=== PATIENT | male | born 1995 | race Two or more races ===

== ENCOUNTER 2025-07-02 10:00 | Emergency (ER) | payer MEDICAID, OTHER ==
[~2025-07-02] VITALS: Ht 167.6 cm; Wt 78.0 kg
--- NOTE | 2025-07-02 11:10 | ED.PDOC ---
History of Present Illness HPI Comments 29 y/o M presents with c/c of nonradiating, right sided chest pain. Patient endorses on awakening, this morning, to 8/10, sharp pain in his lower, right pectoral region. Pain is exacerbated with deep breathes. Patient reports associated nausea and vomiting, diarrhea, fever, and chills, which began last night. Denial of any shortness of breath, bloody or bilious vomitus, abdominal pain, or further acute symptoms. Positive sick contact exposure at home with family. Medical history of asthma. Family history. Social history of occasional alcohol us. Chief Complaint: Chest Pain Time Seen by MD: 10:10 Reviewed Notes: Nurses Notes, Medications, Allergies Allergies: Coded Allergies: NO KNOWN ALLERGIES (Unverified , 07/02/25) Home Meds Active Scripts Tramadol Hcl (Tramadol Hcl) 50 Mg Tab, 50 MG PO Q8HP PRN for 7 Days, #21 TAB Prov:GAVIN VASQUEZ MD 07/02/25 Information Source: Patient Mode of Arrival: Wheelchair Severity: Moderate Timing: Hours Duration: Since onset Prehospital treatment: None Past Medical History PAST MEDICAL HISTORY: Asthma Surgical History: Denies all surgeries Family History Family History: No family hx of Cancer, No family hx of Heart genaro, No family hx of HTN, No family hx ofKidney genaro, No family hx of Liver genaro, No family hx of Lung genaro, No family hx of Stroke, Family hx of DM Social History Smoker: Non-Smoker Alcohol: Occasionally Drugs: Denies Drug Use Lives In: Home Constitutional: reports: chills, fever; denies: diaphoresis, fatigue, malaise, sweats, weakness, others EENTM: denies: blurred vision, double vision, ear bleeding, ear discharge, ear drainage, ear pain, ear ringing, eye pain, eye redness, hearing loss, mouth pain, mouth swelling, nasal discharge, nose bleeding, nose congestion, nose pain, photophobia, tearing, throat pain, throat swelling, voice changes, others Respiratory: denies: cough, hemoptysis, orthopnea, SOB at rest, shortness of breath, SOB with excertion, stridor, wheezing, others Cardiovascular: reports: chest pain; denies: dizzy spells, diaphoresis, Dyspnea on exertion, edema, irregular heart beat, left arm pain, lightheadedness, palpitations, PND, syncope, others Gastrointestinal: reports: diarrhea, nausea, vomiting; denies: abdomen distended, abdominal pain, blood streaked bowels, constipated, dysphagia, difficulty swallowing, hematemesis, melena, poor appetite, poor fluid intake, rectal bleeding, rectal pain, others Genitourinary: denies: burning, dysuria, flank pain, frequency, hematuria, incontinence, penile discharge, penile sore, pain, testicle pain, testicle s welling, urgency, others Neurological: denies: dizziness, fainting, headache, left sided numbness, left sided weakness, numbness, paresthesia, pre-existing deficit, right sided numbness, right sided weakness, seizure, speech problems, tingling, tremors, weakness, others Musculoskeletal: denies: back pain, gout, joint pain, joint swelling, muscle pain, muscle stiffness, neck pain, others Integumetry: denies: bruises, change in color, change in hair/nails, dryness, laceration, lesions, lumps, rash, wounds, others Allergic/Immunocompromised: denies: Difficulty Healing, Frequent Infections, Hives, Itching, others Hematologic/Lymphatic: denies: anemia, blood clots, easy bleeding, easy bruising, swollen glands, others Endocrine: denies: excessive hunger, excessive sweating, excessive thirst, excessive urination, flushing, intolerance to cold, intolerance to heat, unexplained weight gain, unexplained weight loss, others Psychiatric: denies: anxiety, bipolar disorder, depression, hopeless, panic disorder, schizophrenia, sleepless, suicidal, others All Other Systems: Reviewed and Negative Physical Exam General Appearance: No Apparent Distress HEENT: Normal ENT Inspection, Pharynx Normal, TMs Normal Neck: Full Range of Motion, Non-Tender, Normal, Normal Inspection Respiratory: Chest Non-Tender, Lungs Clear, No Accessory Muscle Use, No Respiratory Distress, Normal Breath Sounds Cardiovascular: No Edema, No JVD, No Murmur, No Gallop, Normal Peripheral Pulses, Regular Rate/Rhythm Breast Exam: Deferred Gastrointestinal: No Organomegaly, Non Tender, No Pulsatile Mass, Normal Bowel Sounds, Soft Genitalia: Deferred Pelvic: Deferred Rectal: Deferred Extremities: No calf tenderness, Normal capillary refill, Normal inspection, Normal range of motion, Non-tender, No pedal edema Musculoskeletal : Apperance: Normal Neurologic: Alert, shredding machine tender II-XII nml as Tested, No Motor Deficits, Normal Affect, Normal Mood, No Sensory Deficits Cerebellar Function: Normal Reflexes: Normal Skin: Dry, Normal Color, Warm Lymphatic: No Adenopathy Was a procedure done? Was a procedure done?: No Differential Dx Considerations may include: AMI, PE, ACS, URI, PNA, angina, anxiety, gastritis, GERD, PUD, musculoskeletal pain, sprain, strain, rib fractures, among others X-Ray, Labs, Meds, VS Vital Signs Date Time Temp Pulse Resp B/P (MAP) Pulse Ox O2 Delivery O2 Flow Rate FiO2 07/02/25 11:16 76 07/02/25 11:16 98.6 76 16 101/86 (91) 98 98.6 07/02/25 11:07 78 07/02/25 10:09 101/66 07/02/25 10:08 98.6 72 12 101/66 (78) 100 98.6 07/02/25 10:03 87 Lab Test 07/02/25 11:51 07/02/25 10:54 Range/Units Troponin I High Sensitivity < 3 L < 3 L </=54 ng/L White Blood Count 8.8 4.4-10.8 10^3/uL Red Blood Count 5.43 4.5-5.90 10^6/uL Hemoglobin 15.6 13.5-17.5 g/dL Hematocrit 47.2 41.0-53.0 % Mean Corpuscular Volume 87.0 80.0-100.0 fL Mean Corpuscular Hemoglobin 28.8 28.0-32.0 pg Mean Corpuscular Hemoglobin Concent 33.1 32.0-36.0 g/dL Red Cell Distribution Width 12.8 11.8-14.3 % Platelet Count 244 140-450 10^3/uL Mean Platelet Volume 8.0 6.9-10.8 fL Neutrophils (%) (Auto) 37.0-80.0 % Lymphocytes (%) (Auto) 10.0-50.0 % Monocytes (%) (Auto) 0.0-12.0 % Basophils (%) (Auto) 0.0-2.0 % Neutrophils # (Auto) 1.6-8.6 10 ^3/uL Lymphocytes # (Auto) 0.4-5.4 10 ^3/uL Monocytes # (Auto) 0-1.3 10 ^3/uL Differential Total Cells Counted 100.0 100 Neutrophils % (Manual) 94 H 37.0-80.0 Band Neutrophils % (Manual) 0 Lymphocytes % (Manual) 3 L 10.0-50.0 Monocytes % (Manual) 3 0-12 Eosinophils % (Manual) 0 0-7 Basophils % (Manual) 0 0.0-2.0 Metamyelocytes % (manual) 0 Myelocytes % (Manual) 0 Promyelocytes % (Manual) 0 Blast Cells % (Manual) 0 Reactive Lymphocytes 0 Platelet Estimate Adequate Sodium Level 140 136-145 mmol/L Potassium Level 4.1 3.5-5.1 mmol/L Chloride Level 108 H 98-107 mmol/L Carbon Dioxide Level 23 20-31 mmol/L Anion Gap 9 5-15 Blood Urea Nitrogen 9 9-23 mg/dL Creatinine 1.17 0.700-1.30 mg/dL Glomerular Filtration Rate Calc 86 >90 mL/min BUN/Creatinine Ratio 7.7 L 10.0-20.0 Serum Glucose 106 74-106 mg/dL Calcium Level 10.2 8.7-10.4 mg/dL Current Medications Medications (Trade) Dose Ordered Sig/Marin Route Start Time Stop Time Status Last Admin Aspirin 162 mg ONCE ONCE PO 07/02/25 10:45 07/02/25 10:46 DC 07/02/25 11:10 PROCEDURE(s): CXR2 - CHEST TWO VIEWS ROUTINE IMPRESSION: 1. No acute cardiopulmonary disease. The patient was given aspirin 162 mg by mouth The patient's CBC is within normal limits The chemistry panel is within normal limits The troponin level x2 is negative Patient is being discharged at this time The patient will return to the emergency department's condition worsens Images Reviewed?: Images reviewed and evaluated by me Time of 1ST Reevaluation: 10:40 Reevaluation 1ST: Unchanged Patient Education/Counseling: Diagnosis, Treatment, Prognosis, Need For Follow Up Family Education/Counseling: No Family Present SEPSIS Sepsis Screen Date sepsis recognized/suspect: Jul 02, 2025 Time Sepsis recognized/suspect: 1008 Recent Procedure: No On Antibiotic Therapy: No Respiratory Rate >20: No Heart Rate >90: No Temp<36 C (96.8 F) or >38.3 C: No SBP <90 or MAP <65 mmHG: No New Acute Mental Status Change: No Is the patient on CPAP, BIPAP,: No Physician Orders Electrocardigram (07/02/25 11:12) Electrocardigram (07/02/25 13:12) Heplock Iv (07/02/25 10:41) Turning Machine Set Up Operator (07/02/25 10:41) Blood Pressure (07/02/25 10:41) Pulse Oximetry (07/02/25 10:41) Chest Two Views Routine (07/02/25 10:41) Urinalysis (07/02/25 10:41) Troponin-I Hs (07/02/25 13:41) Drug Screen (07/02/25 10:41) Vital Signs Date Time Temp Pulse Resp B/P (MAP) Pulse Ox O2 Delivery O2 Flow Rate FiO2 07/02/25 11:16 76 07/02/25 11:16 98.6 76 16 101/86 (91) 98 98.6 07/02/25 11:07 78 07/02/25 10:09 101/66 07/02/25 10:08 98.6 72 12 101/66 (78) 100 98.6 07/02/25 10:03 87 Laboratory Tests Test 07/02/25 10:54 White Blood Count 8.8 10^3/uL (4.4-10.8) Medications Medications Dose Ordered Sig/Marin Route Start Time Stop Time Status Last Admin Dose Admin Aspirin 162 mg ONCE ONCE PO 07/02/25 10:45 07/02/25 10:46 DC 07/02/25 11:10 Departure 1 Departure Time of Disposition: 12:54 Impression: Primary Impression: Musculoskeletal chest pain Disposition: 01 HOME / SELF CARE / HOMELESS Condition: Fair e-Prescriptions Tramadol Hcl (Tramadol Hcl) 50 Mg Tab 50 MG PO Q8HP PRN for 7 Days, #21 TAB Prov: GAVIN VASQUEZ MD 07/02/25 Discharged With: Self Critical Care Note Critical Care Time?: No Stability Stability form required: No Heart Score Heart Score: Heart Score Response (Comments) Value History Slightly Suspicious 0 EKG Normal 0 Age <45 0 Risk Factors 1 or 2 risk factors 1 Troponin Normal limit 0 Total 1 I personally scribed for GAVIN VASQUEZ MD ([email or web address]) on 07/02/25 at 11:10. Electronically submitted by Hira Reyna ([email or web address]). I personally scribed for GAIVN VASQUEZ MD ([email or web address]) on 07/02/25 at 11:33. Electronically submitted by Hira Reyna ([email or web address]). GAVIN VASQUEZ MD Jul 02, 2025 11:10
--- NOTE | 2025-07-02 11:10 | DVH ---
XY CHEST TWO VIEWS ROUTINE CLINICAL HISTORY: cp COMPARISON: None TECHNIQUE: Frontal and lateral view of the chest was obtained FINDINGS: Lines and Tubes: None Lungs: No focal consolidation. Pleura: No effusion. No pneumothorax. Cardiomediastinal contours: Unremarkable Bones: No acute osseous abnormality. IMPRESSION: 1. No acute cardiopulmonary disease.
--- NOTE | 2025-07-02 11:10 | ECG ---
[facility] Test Date: 2025-07-02 Test Time: 11:09:05 Pat Name: AMADEO EDWARD Department: ED Room: Gender: M Potable Water Treatment Operator: : 1995 Requested By: GAVIN VASQUEZ Order Number: [id number] Reading MD: Chano Hernandez Measurements Intervals [place] Rate: 78 P: 42 DC: 159 QRS: 74 QRSD: 87 T: -10 QT: 320 QTc: 365 Interpretive Statements Sinus rhythm Probable anteroseptal infarct, old Electronically Signed On 07-02-2025 15:29:54 PST by Chano Hernandez Please click the below link to view image of tracing.
[2025-07-02 11:39] LABS: Potassium 4.1 mmol/L (3.5-5.1); Sodium 140 mmol/L (136-145)
[2025-07-02 11:40] LABS: Anion Gap 9 (5-15); Carbon Dioxide 23 mmol/L (20-31)
[2025-07-02 11:41] LABS: Calcium 10.2 mg/dL (8.7-10.4)
[2025-07-02 11:42] LABS: Hematocrit 47.2 % (41.0-53.0); Hemoglobin 15.6 g/dL (13.5-17.5); Mean Corpuscular Hemoglobin 28.8 pg (28.0-32.0); Mean Corpuscular Volume 87.0 fL (80.0-100.0)
[2025-07-02 11:45] LABS: BUN/Creatinine Ratio 7.7 (10.0-20.0)
[2025-07-02 11:52] LABS: Blood Urea Nitrogen 9 mg/dL (9-23); Chloride 108 mmol/L (98-107); Glucose 106 mg/dL (74-106)
[2025-07-02 12:30] LABS: Total Cells Counted 100.0 (100)
[2025-07-02] MEDS ORDERED: TRAM50TA2 PO (12:52)
[2025-07-02 13:42] VITALS: BP 128/79; PULSE 81; RESP 16; TEMP 98.7; O2SAT 96
--- NOTE | 2025-07-03 16:36 | ECG ---
[facility] Test Date: 2025-07-02 Test Time: 10:03:49 Pat Name: AMADEO EDWARD Department: ED Room: Gender: Senior Manager Quality Assurance: : 1995 Requested By: GAVIN VASQUEZ Order Number: [id number] Reading MD: Chano Hernandez Measurements Intervals [place] Rate: 87 P: 65 CT: 172 QRS: 75 QRSD: 76 T: 8 QT: 323 QTc: 389 Interpretive Statements Sinus rhythm Borderline T wave abnormalities Electronically Signed On 07-06-2025 10:26:08 PST by Chano Hernandez Please click the below link to view image of tracing.
== END 2025-07-02 13:43 | disposition home or self-care (01) ==
LOC: ER 10:00
DX: R07.89 Other chest pain (principal); F10.90 Alcohol use, unspecified, uncomplicated; J45.909 Unspecified asthma, uncomplicated; Z79.899 Other long term (current) drug therapy
CPT/HCPCS: 36415; 71046; 80048; 84484; 85007; 85027; 93005